=== PATIENT | male | born 1995 ===

== ENCOUNTER 2017-12-15 12:07 | Emergency (ER) | payer MEDICAID ==
[2017-12-15 12:29] VITALS: BMI 18.8
[2017-12-15 12:30] VITALS: BP 124/86; PULSE 74; RESP 16; TEMP 98.4; O2SAT 99
[2017-12-15 13:51] LABS: HEMOGLOBIN 13.5 g/dL (12.0-18.0); MEAN CORPUSCULAR HEMOGLOBIN 32.8 pg (27.0-31.0); MEAN CORPUSCULAR HGB CONC 33.2 g/dL (33.0-37.0); RBC 4.12 Mil/uL (4.40-5.90); RED CELL DISTRIBUTION WIDTH 13.6 % (11.5-14.5); WHITE BLOOD COUNT 9.7 K/uL (4.8-10.8)
--- NOTE | 2017-12-15 13:55 | ED PDOC ---
HPI: General Adult Time Seen by Provider: 12/15/17 13:03 Chief Complaint (Nursing): Male Genitourinary Chief Complaint (Provider): Left flank pain x 3 days History Per: Patient History/Exam Limitations: no limitations Onset/Duration Of Symptoms: Days Have you had recent travel within the past 21 days to any of the following countries: [place], [place], [place] or [place]?: No Current Symptoms Are (Timing): Still Present Severity: Severe Pain Scale Rating Of: 10 Additional Complaint(s): Pain sharp, comes and goes. Associated with N/V. No radiation. No similar the past. Past Medical History Reviewed: Historical Data, Nursing Documentation, Vital Signs Vital Signs: Last Vital Signs Temp 98.4 F 12/15/17 12:28 Pulse 74 12/15/17 12:28 Resp 16 12/15/17 12:28 BP 124/86 12/15/17 12:28 Pulse Ox 99 12/15/17 13:57 - Medical History PMH: Kidney Stones - Surgical History Surgical History: No Surg Hx - Family History Family History: States: No Known Family Hx - Living Arrangements Living Arrangements: With Family - Social History Current smoker - smoking cessation education provided: No - Home Medications Home Medications: Ambulatory Orders Medication Instructions Recorded Naproxen [Naprosyn] 500 mg PO BID PRN #30 tab 11/20/16 Ondansetron ODT [Zofran ODT] 4 mg PO TID #21 odt 11/20/16 Tamsulosin [Flomax] 0.4 mg PO DAILY #15 cap 11/20/16 oxyCODONE/Acetaminophen [Percocet 1 ea PO Q8 PRN #10 tab 11/20/16 5/325 mg Tab] Ciprofloxacin [Cipro] 500 mg PO BID #10 tab 12/15/17 Tamsulosin [Flomax] 0.4 mg PO DAILY #10 cap 12/15/17 oxyCODONE/Acetaminophen [Percocet 1 ea PO Q6H PRN #15 tab 12/15/17 5/325 mg Tab] - Allergies Allergies/Adverse Reactions: Allergies Allergy/AdvReac Type Severity Reaction Status Date / Time No Known Allergies Allergy Verified 12/15/17 12:29 Review of Systems ROS Statement: Except As Marked, All Systems Reviewed And Found Negative Constitutional: Negative for: Fever, Chills Respiratory: Negative for: Cough, Shortness of Breath Gastrointestinal: Positive for: Nausea, Vomiting Genitourinary Male: Negative for: Dysuria, Incontinence, Hematuria Physical Exam - Reviewed Nursing Documentation Reviewed: Yes Vital Signs Reviewed: Yes - Physical Exam Appears: Positive for: Well, Non-toxic, No Acute Distress Head Exam: Positive for: ATRAUMATIC, NORMAL INSPECTION, NORMOCEPHALIC Skin: Positive for: Normal Color, Warm, DRY Eye Exam: Positive for: Normal appearance ENT: Positive for: Normal ENT Inspection Neck: Positive for: Normal, Painless ROM Cardiovascular/Chest: Positive for: Regular Rate, Rhythm Respiratory: Positive for: CNT, Normal Breath Sounds Gastrointestinal/Abdominal: Positive for: Normal Exam, Bowel Sounds, Soft. Negative for: Tenderness Back: Positive for: Normal Inspection Extremity: Positive for: Normal ROM Neurologic/Psych: Positive for: Alert, Oriented - Laboratory Results Result Diagrams: 12/15/17 13:43 12/15/17 13:43 - ECG O2 Sat by Pulse Oximetry: 99 Pulse Ox Interpretation: Normal Disposition - Clinical Impression Clinical Impression: Kidney stone on left side - Patient ED Disposition Is Patient to be Admitted: No Counseled Patient/Family Regarding: Diagnosis, Need For Followup, Rx Given - Disposition Referrals: Cruzito Shaw Jr., MD [Staff Provider] - Disposition: Routine/Home Disposition Time: 15:50 Condition: GOOD Additional Instructions: Please see Dr. Shaw at 12:30 on 12/17/17 for further evaluation. Prescriptions: Ciprofloxacin [Cipro] 500 mg PO BID #10 tab oxyCODONE/Acetaminophen [Percocet 5/325 mg Tab] 1 ea PO Q6H PRN #15 tab PRN Reason: Pain, Severe (8-10) Tamsulosin [Flomax] 0.4 mg PO DAILY #10 cap Instructions: Kidney Stones (ED) Forms: [employer] ([place])
[2017-12-15 13:56] LABS: SPERM URINE RARE /hpf; URINE BILIRUBIN NEGATIVE (NEGATIVE); URINE BLOOD NEGATIVE (NEGATIVE); URINE CLARITY CLEAR (Clear); URINE COLOR YELLOW (YELLOW); URINE GLUCOSE (UA) NEG (Normal); URINE LEUKOCYTE ESTERASE NEG Leu/uL (Negative); URINE NITRATE NEGATIVE (NEGATIVE); URINE PROTEIN NEGATIVE (NEGATIVE); URINE UROBILINOGEN 0.2-1.0 mg/dL (0.2-1.0)
[2017-12-15 13:59] LABS: MEAN CELL VOLUME 98.8 fl (80.0-94.0)
[2017-12-15 14:09] LABS: ALB/GLOB RATIO 1.2 (1.0-2.1); ALBUMIN 4.3 g/dL (3.5-5.0); ALT/SGPT 29 U/L (21-72); AST/SGOT 27 U/L (17-59); BLOOD UREA NITROGEN 5 mg/dl (9-20); CALCIUM 9.3 mg/dL (8.4-10.2); GFR AFRICAN-AMERICAN > 60; GFR NON-AFRICAN AMERICAN > 60
--- NOTE | 2017-12-15 14:14 | CT ---
PROCEDURE: CT Abdomen and Pelvis without intravenous contrast HISTORY: Left flank pain COMPARISON: 11/20/2016. TECHNIQUE: Unenhanced study. Neither oral nor intravenous contrast administered. Radiation dose: Total exam DLP = 313.83 mGy-cm. This CT exam was performed using one or more of the following dose reduction techniques: Automated exposure control, adjustment of the mA and/or kV according to patient size, and/or use of iterative reconstruction technique. FINDINGS: LOWER THORAX: Unremarkable. LIVER: Unremarkable. No gross lesion or ductal dilatation. GALLBLADDER AND BILE DUCTS: Unremarkable. PANCREAS: Unremarkable. No gross lesion or ductal dilatation. SPLEEN: Unremarkable. ADRENALS: Unremarkable. No mass. KIDNEYS AND URETERS: Proximal obstructing calculus left ureter at the L2-3 level. Calculus measures 5.5 x 7.5 mm. More proximal left hydroureter. Mild distention of the left collecting system without perinephric fluid collection. Innumerable punctate upper tract calculi the preponderance of which are 3 mm or less. VASCULATURE: Unremarkable. No aortic aneurysm. BOWEL: Unremarkable. No obstruction. No gross mural thickening. APPENDIX: Unremarkable. Normal appendix. PERITONEUM: Unremarkable. No free fluid. No free air. LYMPH NODES: Unremarkable. No enlarged lymph nodes. BLADDER: Unremarkable. REPRODUCTIVE: Unremarkable. BONES: No acute fracture. OTHER FINDINGS: None. IMPRESSION: 5.5 x 7.5 mm proximal obstructing left ureteral calculus. Innumerable nonobstructing upper tract calculi bilaterally.
[2017-12-15] MEDS ORDERED: Oxycodone/Acetaminophen 5/325 mg Tab PO STA (15:59)
[2017-12-15] MEDS ORDERED: Oxycodone/Acetaminophen 5/325 mg Tab ONE (16:00)
== END 2017-12-15 16:24 | disposition home or self-care (01) ==
LOC: H.ER 12:07
DX: N20.2 Calculus of kidney with calculus of ureter (principal)
CPT/HCPCS: 74176; 80053; 81003; 85027; 87086; 96374; 99283; J1885